=== PATIENT | male | born 1985 | race Caucasian/White ===

== ENCOUNTER 2019-08-15 02:33 | Emergency (ER) | payer BC ==
--- NOTE | 2019-08-15 02:59 | ED ---
Palpitations / Dysrhythmia - HPI Summary HPI Summary: The patient is a 34 y/o M presenting to [facility] with a chief complaint of intermittent episodes of palpitations over the last two days. The palpitations are described as a pumping that lasts for a few minutes. His symptoms are aggravated by anxiety, which he states he is more stressed out than normal because he has a child on the way and his son is switching schools this week. He denies any CP or SOB. Currently, his symptoms are rated 0/10 in severity. PMHx: appendectomy. Nonsmoker, occasional EtOH, no substance use. Medications reviewed. Allergies noted. - History of Current Complaint Chief Complaint: EDDysrhythmPalp Time Seen by Provider: 08/15/19 02:51 Hx Obtained From: Patient Onset/Duration: Gradual Onset, Lasting Days - two Timing: Intermittent Episodes Lasting: - a few minutes Severity Initially: Moderate Severity Currently: Mild Character: Fluttering Aggravating: Other - anxiety Alleviating: Rest Associated Signs & Symptoms: Negative - no CP or SOB - Allergy/Home Medications Allergies/Adverse Reactions: Allergies Allergy/AdvReac Type Severity Reaction Status Date / Time No Known Allergies Allergy Verified 08/15/19 02:36 PMH/Surg Hx/FS Hx/Imm Hx Endocrine/Hematology History: Denies: Hx Diabetes Respiratory History: Denies: Hx Asthma Sensory History: Denies: Hx Deafness Opthamlomology History: Denies: Hx Legally Blind - Surgical History Surgical History: Yes Surgery Procedure, Year, and Place: appendectomy Infectious Disease History: No Infectious Disease History: Denies: Traveled Outside the [place] in Last 30 Days - Family History Known Family History: Negative: Diabetes - Social History Alcohol Use: Occasionally Hx Substance Use: No Substance Use Type: Reports: None Hx Tobacco Use: No Smoking Status (MU): Never Smoked Tobacco Review of Systems Positive: Palpitations - "pumping". Negative: Chest Pain Negative: Shortness Of Breath Positive: Anxious All Other Systems Reviewed And Are Negative: Yes Physical Exam - Summary Physical Exam Summary: Appearance: Well-appearing, Well-nourished, lying in bed comfortably Skin: Warm, dry, no obvious rash Eyes: sclera anicteric, no conjunctival pallor ENT: mucous membranes moist, pharynx appears normal Neck: Supple, nontender Respiratory: Clear to auscultation, no signs of respiratory distress Cardiovascular: Normal S1, S2. No murmurs. Normal distal pulses in tibial and radial bilaterally. Abdomen: Soft, nontender, normal active bowel sounds present Musculoskeletal: Normal, Strength/ROM Intact Neurological: A&Ox3, awake and alert, mentation is normal, speech is fluent and appropriate Psychiatric: affect is normal, does not appear anxious or depressed Triage Information Reviewed: Yes Vital Signs On Initial Exam: Initial Vitals Temp Pulse Resp BP Pulse Ox 98.4 F 91 18 151/98 100 08/15/19 02:35 08/15/19 02:35 08/15/19 02:35 08/15/19 02:35 08/15/19 02:35 Vital Signs Reviewed: Yes Diagnostics - Vital Signs Vital Signs Temp Pulse Resp BP Pulse Ox 08/15/19 02:35 98.4 F 91 18 151/98 100 - Laboratory Lab Statement: Any lab studies that have been ordered have been reviewed, and results considered in the medical decision making process. - EKG 0244 Cardiac Rate: NL - 86 bpm EKG Rhythm: Sinus Rhythm Summary of EKG Findings: NSR at 86 BPM, P waves, QRS complex, and T waves are within normal limits, T waves and intervals are normal, no ischemic changes. This is a normal EKG. Course/Dx - Course Course Of Treatment: Pt is a 34 y/o M with cc of intermittent episodes of pumping palpitations lasting a few minutes aggravated by anxiety onset two days ago. Upon physical exam, the pt exhibits no acute abnormalities. EKG at 0244 reveals NSR at 86 bpm without any ischemic changes. Since the pts symptoms are worsened by anxiety, it is likely that the palpitations he is experiencing is secondary to anxiety and increased stress with low suspicion for cardiac origin. He understands and agrees with plan for discharge home. He is recommended to follow up with Dr. Aguayo from cardiology if his symptoms persist. - Diagnoses Provider Diagnoses: Palpitations, Anxiety Discharge ED - Sign-Out/Discharge Documenting (check all that apply): Patient Departure - Patient will be discharged home. Patient Received Moderate/Deep Sedation with Procedure: No - Discharge Plan Condition: Good Disposition: HOME Patient Education Materials: Heart Palpitations (ED) Referrals: Lalo Aguayo DO [Medical Doctor] - If Needed Additional Instructions: If this continues to bother you, a consultation with a mixing machine tender cork gasket may be helpful. They can order ambulatory heart rhythm monitoring or other types of testing to make a more precise diagnosis. But at present your EKG looks ok and I don't think these palpitations are dangerous. - Billing Disposition and Condition Condition: GOOD Disposition: Home - Attestation Statements Document Initiated by Brandon: Yes Documenting Scribe: Ella Khalil Provider For Whom Brandon is Documenting (Include Credential): Dr. Dl Beaver MD Scribe Attestation: I, gaviota Castleibed for Dr. Dl Beaver MD on 08/16/19 at 0655. Scribe Documentation Reviewed: Yes Provider Attestation: The documentation as recorded by the Ella pederson accurately reflects the service I personally performed and the decisions made by me, Dr. Dl Beaver MD Status of Brandon Document: Viewed
[2019-08-15 03:09] VITALS: BP 127/80
== END 2019-08-15 03:07 | disposition home or self-care (01) ==
LOC: ED 02:33
DX: R00.2 Palpitations (principal); F41.9 Anxiety disorder, unspecified
CPT/HCPCS: 93005; 99282

== ENCOUNTER 2019-11-19 12:59 | Emergency (ER) | payer BC, OTHER ==
[2019-11-19] MEDS ORDERED: Tetracaine 0.5% OPTH.SOL 4 ML* 1 DROP BTL RIGHT EYE ONE (13:23)
[2019-11-19] MEDS ORDERED: Fluorescein Sodium TOPICAL* 1 MG TEST STRIP OPHTHALMIC ONE (13:23)
[2019-11-19 13:30] VITALS: BP 129/81
--- NOTE | 2019-11-19 13:47 | UC ---
Eye Complaint HPI - HPI Summary HPI Summary: 34-year-old male comes in with a chief complaint of a foreign body in the right eye. 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 he noticed some discomfort right eye and can see a small black foreign body in his right eye over the iris. The eyes irritated. - History of Current Complaint Chief Complaint: UCEye Stated Complaint: WC RIGHT EYE FOREIGN BODY Time Seen by Provider: 11/19/19 13:37 Pain Intensity: 3 - Allergies/Home Medications Allergies/Adverse Reactions: Allergies Allergy/AdvReac Type Severity Reaction Status Date / Time No Known Allergies Allergy Verified 11/19/19 13:25 PMH/Surg Hx/FS Hx/Imm Hx Previously Healthy: Yes - Surgical History Surgical History: Yes Surgery Procedure, Year, and Place: Appendectomy, ~2007; Jaw Reconstuction, ~ 2000 - Family History Known Family History: Negative: Diabetes - Social History Alcohol Use: Occasionally Substance Use Type: None Smoking Status (MU): Never Smoked Tobacco - Immunization History Most Recent Tetanus Shot: Within the last ten years Review of Systems All Other Systems Reviewed And Are Negative: Yes Constitutional: Positive: Negative Skin: Positive: Negative Eyes: Positive: Drainage, Other - SEE HPI ENT: Positive: Negative Respiratory: Positive: Negative Cardiovascular: Positive: Negative Gastrointestinal: Positive: Negative Motor: Positive: Negative Neurovascular: Positive: Negative Musculoskeletal: Positive: Negative Neurological: Positive: Negative Psychological: Positive: Negative Is Patient Immunocompromised?: No Physical Exam Triage Information Reviewed: Yes Appearance: Well-Appearing, Well-Nourished, Pain Distress - MILD Vital Signs: Initial Vital Signs Temp 98.3 F 11/19/19 13:23 Pulse 66 11/19/19 13:23 Resp 16 11/19/19 13:23 BP 129/81 11/19/19 13:23 Pulse Ox 100 11/19/19 13:23 Vital Signs Reviewed: Yes Eyes: Positive: Other: - Right thigh has a 1 mm black foreign body lying on the medial aspect of the iris. Minimal scleral injection and clear tears. No hyphema PERRLA EOMI. Tetracaine drops were applied. No fluorescein stain used. I removed the foreign body with a foam tipped applicator. Patient tolerated the procedure well. Neck: Positive: Supple Respiratory: Positive: No respiratory distress Musculoskeletal: Positive: Strength Intact, ROM Intact Neurological: Positive: Alert Psychological: Positive: Age Appropriate Behavior Skin Exam: Normal Eye Complaint Course/Dx - Differential Dx/Diagnosis Provider Diagnosis: Foreign body of right eye Discharge ED - Sign-Out/Discharge Documenting (check all that apply): Patient Departure All imaging exams completed and their final reports reviewed: No Studies - Discharge Plan Condition: Stable Disposition: HOME Prescriptions: Tobramycin 0.3% OPHTH.SALAS* 1 drop RIGHT EYE Q4H #1 btl Patient Education Materials: Eye Foreign Body (ED) Forms: *Work Release Referrals: Jesus Valencia MD [Primary Care Provider] - Kim MOREL,Lisa [Medical Doctor] - Chi Asencio MD [Medical Doctor] - [facility] [Provider Group] Additional Instructions: FOLLOW UP WITH OPHTHALMOLOGY IF NOT COMPLETELY IMPROVED. GET REEVALUATED SOONER IF NOT IMPROVING OR WORSE OR ANY QUESTIONS OR CONCERNS. - Billing Disposition and Condition Condition: STABLE Disposition: Home
== END 2019-11-19 13:56 | disposition home or self-care (01) ==
LOC: UCCORT 12:59
DX: T15.91XA Foreign body on external eye, part unspecified, right eye, initial encounter (principal)
CPT/HCPCS: 99212; A9270-GY; G0463